=== PATIENT | male | born 1960 | race Caucasian/White ===

== ENCOUNTER 2017-07-04 18:06 | Emergency (ER) | payer OTHER ==
[~2017-07-04] VITALS: Ht 180.3 cm; Wt 64.9 kg
--- NOTE | ~2017-07-04 | CR150 ---
[facility] A Service of [facility] & [facility] RADIOLOGY TEXT RESULTS PATIENT: JAN QUINTERO LOCATION: [facility] : 62 UNIT #: [id number] AGE: [address]: Sera Goddard APRN SEX: M ORDER DR: [id number] [facility] [address] [place], [place] [address] [id number] E MR#: [id number] Acc #: [id number] NAME: JAN QUINTERO. : 1960 SEX: M STUDY DATE/TIME: 07/04/2017 19:50 UNIT: [facility] ROOM: STUDY DESCRIPTION: CR Hip Min 2 Views Lt Attending Physician: Sera Goddard A.P.R.N. Ordering Physician: Sera Goddard A.P.R.N. Primary Care Physician: Donta Mcclellan Aprn MEDICAL IMAGING REPORT This report is preliminary unless electronic signature is present EXAM AP pelvis with frog view left hip date of examination is 07/04/2017 HISTORY Left hip pain. Fell last night. COMPARISON None. FINDINGS Age-indeterminate displaced fracture of the superior margin left greater trochanter. No right or left femoral neck fracture is seen. Chronic well-corticated calcification is seen adjacent to the right greater trochanter which represents sequela of remote trauma. The pelvic ring appears intact. No SI joint or pubic symphysis diastasis. Small phleboliths in the pelvis to the left of midline. Imaged lower lumbar spine appears unremarkable. IMPRESSION 1. Findings suspicious for acute mildly displaced fracture of the superior margin of the left greater trochanter. 2. No hip dislocation. 3. CT of the left hip recommended for verification. Dictated by... Shanda Lunsford M.D. THIS IS AN ELECTRONICALLY VERIFIED REPORT Shanda Lunsford M.D. at 07/06/2017 9:56 AM MARIA R/rea TD: 07/05/2017 03:54 JOB #: [id number] [facility] A Service of [facility] & [facility] RADIOLOGY TEXT RESULTS PATIENT: JAN QUINTERO LOCATION: [facility] : 62 UNIT #: [id number] AGE: [address]: Sera Goddard APRN SEX: M ORDER DR: MEDICAL IMAGING REPORT Page 1 of 1 COPY
--- NOTE | ~2017-07-04 | CT107 ---
[facility] A Service of [facility] & [facility] RADIOLOGY TEXT RESULTS PATIENT: JAN QUINTERO LOCATION: [facility] : 62 UNIT #: [id number] AGE: [address]: Sera Goddard APRN SEX: M ORDER DR: [id number] [facility] [address] [place], [place] [address] [id number] E MR#: [id number] Acc #: [id number] NAME: JAN QUINTERO. : 1960 SEX: M STUDY DATE/TIME: 07/04/2017 20:57 UNIT: [facility] ROOM: STUDY DESCRIPTION: CT Pelvis Wo Cont Attending Physician: Sera Goddard A.P.R.N. Ordering Physician: Sera Goddard A.P.R.N. Primary Care Physician: Donta Mcclellan Aprn MEDICAL IMAGING REPORT This report is preliminary unless electronic signature is present EXAM CT pelvis, 07/04/2017. HISTORY Fall. Fell 1:30 this a.m. Hip pain. Left side of the head pain. No loss of consciousness. TECHNIQUE CT of the pelvis performed without administration of intravenous contrast. This CT exam was performed with one or more of the following radiation dose reduction techniques: automatic exposure control, adjustment of mA and/or kV according to patient size, and iterative reconstruction. COMPARISON Comparison to plain radiographs of the pelvis performed earlier on the same date. FINDINGS The visualized portions of small bowel and colon are unremarkable. Appendix normal. No inguinal adenopathy. No pelvic or retroperitoneal adenopathy. Vascular calcifications. Urinary bladder unremarkable. There is a complete mildly comminuted fracture of the superior aspect of the greater trochanter of the left femur. The fracture fragments are in near-anatomic alignment. The fracture fragments are distracted cephalad by about 4 mm. The appearance is consistent with appearance on prior plain radiograph. There is minimal perhaps 1 mm medial displacement. No significant angulation. There is adjacent soft tissue edema with fat stranding and haziness but no hematoma or fluid collection. There is no iufuise-vde-gswduaj fracture involving the femoral neck or shaft. The left hip joint is unremarkable. There are degenerative changes in the lower lumbar spine. No spinal stenosis. Remainder of the bony ring of STS. [facility] A Service of [facility] & [facility] RADIOLOGY TEXT RESULTS PATIENT: JAN QUINTERO LOCATION: [facility] : 62 UNIT #: [id number] AGE: [address]: Sera Goddard APRN SEX: M ORDER DR: pelvis is intact. There is no soft tissue defect, subcutaneous air, or radiodense foreign body. IMPRESSION 1. Findings consistent with appearance of the proximal left femur on earlier plain radiograph. There is a mildly comminuted fracture involving the superior aspect of the left femoral greater trochanter. The dominant fracture fragments are in near-anatomic alignment and are displaced as a whole superiorly by about 4 mm. The fracture fragments as a whole measure about 1.2 cm x 2 cm x 2.4 cm. There is no eyauqqc-ckq-beddrsu fracture involving the femoral neck, the overall intertrochanteric region, or the visualized femoral shaft. The left hip joint is intact and normal in appearance. 2. Soft tissue edema and stranding adjacent to the left greater trochanteric fracture. No soft tissue defect, subcutaneous air, or radiodense foreign body. 3. No other acute bony or soft tissue abnormalities. Dictated by... Patrice King M.D. THIS IS AN ELECTRONICALLY VERIFIED REPORT Patrice King M.D. at 07/05/2017 9:31 PM Lele TD: 07/05/2017 07:43 JOB #: [id number] MEDICAL IMAGING REPORT Page 1 of 1 COPY
--- NOTE | ~2017-07-04 | CR285 ---
[facility] A Service of [facility] RADIOLOGY TEXT RESULTS PATIENT: JAN QUINTERO LOCATION: [facility] : 62 UNIT #: [id number] AGE: [address]: Sera Goddard APRN SEX: M ORDER DR: [id number] [facility] [address]. [place], [place] [address] [id number] E MR#: [id number] Acc #: [id number] NAME: JAN QUINTERO. : 1960 SEX: M STUDY DATE/TIME: 07/04/2017 19:46 UNIT: [facility] ROOM: STUDY DESCRIPTION: CR Wrist W Navicular Min 3 Lt Attending Physician: Sera Goddard A.P.R.N. Ordering Physician: Sera Goddard A.P.R.N. Primary Care Physician: Donta Mcclellan Aprn MEDICAL IMAGING REPORT This report is preliminary unless electronic signature is present EXAM 4 views of the left wrist. DATE 07/04/2017 HISTORY Left wrist pain after falling last night. COMPARISON Forearm radiographs 05/01/2011. FINDINGS There is a tiny calcific density at the posterior margin of the wrist joint which is not definitely seen on the 2010 forearm radiograph. There does appear to be posterior wrist soft tissue swelling. Findings are concerning for potential triquetral fracture. No joint dislocation. No retained radiopaque foreign body. IMPRESSION 1. Calcification at the dorsum of the wrist with posterior wrist soft tissue swelling raises the possibility of subtle triquetral fracture. Please correlate to the site of pain. 2. No joint dislocation. Dictated by... Shanda Lunsford M.D. THIS IS AN ELECTRONICALLY VERIFIED REPORT Shanda Lunsford M.D. at 07/05/2017 2:03 PM MARIA R/rea TD: 07/05/2017 03:51 [facility] A Service of [facility] RADIOLOGY TEXT RESULTS PATIENT: JAN QUINTERO [id number] 62 UNIT #: [id number] AGE: [address]: Sera Goddard APRN SEX: M ORDER DR: JOB #: [id number] MEDICAL IMAGING REPORT Page 1 of 1 COPY
--- NOTE | ~2017-07-04 | CT71 ---
[facility] A Service of [facility] RADIOLOGY TEXT RESULTS PATIENT: JAN QUINTERO LOCATION: [facility] : 62 UNIT #: [id number] AGE: [address]: Sera Goddard APRN SEX: M ORDER DR: [id number] [id number] [facility] [address]. [place], [place] [address] [id number] E MR#: [id number] Acc #: [id number] NAME: JAN QUINTERO. : 1960 SEX: M STUDY DATE/TIME: 07/04/2017 20:55 UNIT: [facility] ROOM: STUDY DESCRIPTION: CT Head Wo Contrast Attending Physician: Sera Goddard A.P.R.N. Ordering Physician: Sera Goddard A.P.R.N. Primary Care Physician: Donta Mcclellan Aprn MEDICAL IMAGING REPORT This report is preliminary unless electronic signature is present EXAM Non contrast CT head DATE 07/04/2017 HISTORY Fell at 1:30 a.m. today with a left sided head pain. COMPARISON None TECHNIQUE This CT exam was performed with one or more of the following radiation dose reduction techniques: automatic control, adjustment of mA and/or kV according to patient size, and iterative reconstruction. FINDINGS No acute intracranial hemorrhage, mass lesions, mass effect of midline shift. Martinez matter-white matter junction distinction appears preserved, without CT evidence of acute or evolving infarct. Ventricular configuration is normal, without evidence of hydrocephalus. No displaced calvarial fracture is identified. Major paranasal sinuses and mastoid air cells appear clear. IMPRESSION 1. No acute intracranial findings. Dictated by... [facility] A Service of [facility] RADIOLOGY TEXT RESULTS PATIENT: JAN QUINTERO LOCATION: [facility] : 62 UNIT #: [id number] AGE: [address]: Sera Goddard APRN SEX: M ORDER DR: Shanda Lunsford M.D. THIS IS AN ELECTRONICALLY VERIFIED REPORT Shanda Lunsford M.D. at 07/05/2017 2:03 PM MARIA R/rea TD: 07/05/2017 05:33 JOB #: [id number] MEDICAL IMAGING REPORT Page 1 of 1 COPY
[~2017-07-04 18:06] MED LIST: KEFLEX500 MG PO; KLONOPIN2 MG PO; MOTRIN400 MG PO; WELLBUTRIN XL150 M1 PO
== END 2017-07-04 23:33 | disposition home or self-care (01) ==
LOC: CFTX 18:06 → CED 18:06 → CFTX 19:56
DX: S72.112A Displaced fracture of greater trochanter of left femur, initial encounter for closed fracture (principal); K21.9 Gastro-esophageal reflux disease without esophagitis; J44.9 Chronic obstructive pulmonary disease, unspecified; F17.210 Nicotine dependence, cigarettes, uncomplicated; Z88.6 Allergy status to analgesic agent; W10.9XXA Fall (on) (from) unspecified stairs and steps, initial encounter; Y92.009 Unspecified place in unspecified non-institutional (private) residence as the place of occurrence of the external cause
CPT/HCPCS: 29125; 70450; 72192; 73110; 73502; 99283